=== PATIENT | male | born 1975 | race Caucasian/White ===

== ENCOUNTER → 2019-08-05 | Outpatient (CLI) | payer BC ==
[2019-08-05 09:17] LABS: HCT 43.4 % (39.0-53.0); MCH 31.6 pg (25.0-35.0); MCHC 34.5 g/dL (31.0-37.0); MCV 91.6 fL (80.0-100.0); Mean Platelet Volume 7.3; Platelet Count 238 k/uL (150-450); RBC 4.74 m/uL (4.30-5.90); RDW 12.4 % (11.5-15.5); WBC 8.1 k/uL (3.8-10.6)
[2019-08-05 09:51] LABS: INR 0.9 (<1.2); Prothrombin Time 9.4 sec (9.0-12.0)
[2019-08-05 18:14] LABS: ALT 53 U/L (10-49); AST 31 U/L (14-35); Albumin/Globulin Ratio 2.21 (1.60-3.17); Alkaline Phosphatase 121 U/L (41-126); Bilirubin, Conjugated <0.20 mg/dL (0.20-0.40); Globulin 1.9 g/dL (1.6-3.3); Non-African American GFR(CKD) 107.9 (60.0-200.0); Total Bilirubin 0.2 mg/dL (0.2-1.2); Total Protein 6.1 g/dL (6.2-8.2)
== END | disposition home or self-care (01) ==
LOC: LABWHC1 08:02
PROVIDERS: ATTEND Physician Assistant
DX: B19.20 Unspecified viral hepatitis C without hepatic coma (principal)
CPT/HCPCS: 36415; 80076; 82565; 85027; 85610; 87522

== ENCOUNTER → 2019-08-05 | Outpatient (CLI) | payer BC ==
--- NOTE | 2019-08-05 08:22 | US ---
EXAMINATION TYPE: US liver DATE OF EXAM: 08/05/2019 COMPARISON: NONE CLINICAL HISTORY: 44-year-old male B19.20 Hepatitis C. TECHNIQUE: Multiple sonographic images of the right upper quadrant are obtained. FINDINGS: EXAM MEASUREMENTS: Liver Length: 20.9 cm Gallbladder Wall: 0.1 cm CBD: 1.0 cm Right Kidney: 13.7 x 5.3 x 5.1 cm Pancreas: Pancreatic head and tail obscured by overlying bowel gas. Visualized body shows no gross a bnormality. Liver: Enlarged. Increased attenuation, decreased visualization of vessels suggestive of fatty infil trate. Gallbladder: wnl Evidence for sonographic Angel's sign: neg CBD: Dilated Right Kidney: No hydronephrosis or masses seen. Somewhat large in size. IMPRESSION: 1. Hepatomegaly (20.9 cm) with underlying hepatic steatosis. Correlate with LFTs, lipid profile, and patient risk factors. 2. Bile duct is dilated at 1.0 cm. Correlate with alkaline phosphatase and bilirubin levels to exclud e biliary obstruction. ERCP or MRCP as clinically indicated. 3. Somewhat large size of the right kidney without hydronephrosis. Questionable clinical significance .
== END | disposition home or self-care (01) ==
LOC: RADUSWWP 07:02
PROVIDERS: ATTEND Internal Medicine Gastroenterology
DX: K76.0 Fatty (change of) liver, not elsewhere classified (principal); R16.0 Hepatomegaly, not elsewhere classified; K83.8 Other specified diseases of biliary tract
CPT/HCPCS: 76705

== ENCOUNTER 2019-12-20 07:57 | Emergency (ER) | payer BC ==
[2019-12-20 08:03] VITALS: RESP 18
[2019-12-20] MEDS ORDERED: SODIUM CHLORIDE 0.9% 1,000 ML IV STA ×2 (08:27)
[2019-12-20] MEDS ORDERED: MORPHINE SULFATE 2 MG/ML SYRINGE IVP STA (08:27)
[2019-12-20] MEDS ORDERED: KETOROLAC 30 MG/ML 1 ML VIAL IVP STA (08:27)
[2019-12-20] MEDS ORDERED: PANTOPRAZOLE 40 MG/10 ML VIAL IVP STA (08:27)
--- NOTE | 2019-12-20 08:31 | ED ---
Abdominal Pain HPI - General Chief Complaint: Abdominal Pain Stated Complaint: L side pain Time Seen by Provider: 12/20/19 08:13 Source: patient, RN notes reviewed, old records reviewed Mode of arrival: ambulatory Limitations: no limitations - History of Present Illness Initial Comments: This Patient is a 44-year-old male who presents the emergency department today for evaluation with chief complaint of left-sided abdominal and flank pain underneath his ribs worsening over the past month. He initially thought this was related to constipation. Patient states that he has a history of hepatitis and currently receiving treatment was on his third month of hep C treatment. Patient states that he has had no changes in urination, and reports that he did have a small bowel movement the past few days. He reports that sometimes the pain will cause discomfort with breathing. Patient denies any recent fevers or chills. No vomiting. - Related Data Previous Rx's Medication Instructions Recorded Ondansetron Odt [Zofran Odt] 4 mg PO Q8HR PRN #12 tab 12/20/19 Pantoprazole [Protonix] 40 mg PO DAILY #7 tablet. 12/20/19 Allergies Allergy/AdvReac Type Severity Reaction Status Date / Time No Known Allergies Allergy Verified 12/20/19 08:03 Review of Systems ROS Statement: Those systems with pertinent positive or pertinent negative responses have been documented in the HPI. ROS Other: All systems not noted in ROS Statement are negative. Past Medical History Additional Past Medical History / Comment(s): hepatitis c History of Any Multi-Drug Resistant Organisms: None Reported Past Surgical History: No Surgical Hx Reported Smoking Status: Current every day smoker Past Alcohol Use History: None Reported Past Drug Use History: None Reported General Exam - General Exam Comments Initial Comments: 44 -year-old male. Alert and oriented 3. Patient appears in no acute distress. Limitations: no limitations General appearance: alert, in no apparent distress Head exam: Present: atraumatic, normocephalic, normal inspection Eye exam: Present: normal appearance ENT exam: Present: normal exam, mucous membranes moist Neck exam: Present: normal inspection. Absent: tenderness, meningismus, lymphadenopathy Respiratory exam: Present: normal lung sounds bilaterally Cardiovascular Exam: Present: regular rate, normal rhythm, normal heart sounds. Absent: systolic murmur, diastolic murmur, rubs, gallop, clicks GI/Abdominal exam: Present: soft, normal bowel sounds. Absent: distended, tenderness, guarding, rebound, rigid Extremities exam: Present: normal inspection, full ROM, normal capillary refill. Absent: tenderness, pedal edema, joint swelling, calf tenderness Back exam: Present: normal inspection Neurological exam: Present: alert, oriented X3, CN II-XII intact Psychiatric exam: Present: normal affect, normal mood Skin exam: Present: warm, dry, intact, normal color. Absent: rash Course Vital Signs 12/20/19 07:58 Temperature 97.6 F Pulse Rate 63 Respiratory 18 Rate Blood Pressure 154/92 O2 Sat by Pulse 98 Oximetry Medical Decision Making - Medical Decision Making Patient is a 44-year-old male presents emergency department today for evaluation chief complaint of left-sided abdominal pain and flank pain for the past 2 months. At this time Patient reports he's had no changes in her bloody stools, denies weight loss. He reports that pain sometimes is worse with eating and worse with a breath. At this time he does also state he is now his Protonix for the past few months that he normally would take daily. At this time patient's vital signs are stable. EKG was performed and normal. Blood work was otherwise unremarkable including normal kidney function and normal UA. Reevaluation Patient is resting comfortably in bed. Patient was offered further imaging studies such as computed tomography scan but states he probably forego this today and a chronic pain as the rest of the labs are normal. I did discuss if any worsening signs or symptoms occur persistent pain he could return for further evaluation or following up with his primary care doctor. Patient is a greeable to treatment plan will comply. Return parameters were discussed. - Lab Data Result diagrams: 12/20/19 08:59 12/20/19 08:59 Lab Results 12/20/19 12/20/19 12/20/19 Range/Units 08:59 08:59 08:59 WBC 8.4 (3.8-10.6) k/uL RBC 4.67 (4.30-5.90) m/uL Hgb 14.5 (13.0-17.5) gm/dL Hct 42.6 (39.0-53.0) % MCV 91.3 (80.0-100.0) fL MCH 31.0 (25.0-35.0) pg MCHC 34.0 (31.0-37.0) g/dL RDW 12.3 (11.5-15.5) % Plt Count 224 (150-450) k/uL Neutrophils % 52 % Lymphocytes % 37 % Monocytes % 5 % Eosinophils % 3 % Basophils % 1 % Neutrophils # 4.4 (1.3-7.7) k/uL Lymphocytes # 3.1 (1.0-4.8) k/uL Monocytes # 0.4 (0-1.0) k/uL Eosinophils # 0.3 (0-0.7) k/uL Basophils # 0.1 (0-0.2) k/uL PT 9.5 (9.0-12.0) sec INR 0.9 (<1.2) APTT 23.5 (22.0-30.0) sec Sodium 136 L (137-145) mmol/L Potassium 4.6 (3.5-5.1) mmol/L Chloride 103 (98-107) mmol/L Carbon Dioxide 25 (22-30) mmol/L Anion Gap 8 mmol/L BUN 15 (9-20) mg/dL Creatinine 0.59 L (0.66-1.25) mg/dL Est GFR (CKD-EPI)AfAm >90 (>60 ml/min/1.73 sqM) Est GFR (CKD-EPI)NonAf >90 (>60 ml/min/1.73 sqM) Glucose 119 H (74-99) mg/dL Plasma Lactic Acid Jw (0.7-2.0) mmol/L Calcium 8.9 (8.4-10.2) mg/dL Total Bilirubin 0.2 (0.2-1.3) mg/dL AST 26 (17-59) U/L ALT 29 (4-49) U/L Alkaline Phosphatase 95 (38-126) U/L Troponin I (0.000-0.034) ng/mL Total Protein 6.7 (6.3-8.2) g/dL Albumin 3.9 (3.5-5.0) g/dL Amylase 47 (30-110) U/L Lipase 58 (23-300) U/L Urine Color Urine Appearance (Clear) Urine pH (5.0-8.0) Ur Specific [place] (1.001-1.035) Urine Protein (Negative) Urine Glucose (UA) (Negative) Urine Ketones (Negative) Urine Blood (Negative) Urine Nitrite (Negative) Urine Bilirubin (Negative) Urine Urobilinogen (<2.0) mg/dL Ur Leukocyte Esterase (Negative) 12/20/19 12/20/19 12/20/19 Range/Units 08:59 08:59 09:20 WBC (3.8-10.6) k/uL RBC (4.30-5.90) m/uL Hgb (13.0-17.5) gm/dL Hct (39.0-53.0) % MCV (80.0-100.0) fL MCH (25.0-35.0) pg MCHC (31.0-37.0) g/dL RDW (11.5-15.5) % Plt Count (150-450) k/uL Neutrophils % % Lymphocytes % % Monocytes % % Eosinophils % % Basophils % % Neutrophils # (1.3-7.7) k/uL Lymphocytes # (1.0-4.8) k/uL Monocytes # (0-1.0) k/uL Eosinophils # (0-0.7) k/uL Basophils # (0-0.2) k/uL PT (9.0-12.0) sec INR (<1.2) APTT (22.0-30.0) sec Sodium (137-145) mmol/L Potassium (3.5-5.1) mmol/L Chloride (98-107) mmol/L Carbon Dioxide (22-30) mmol/L Anion Gap mmol/L BUN (9-20) mg/dL Creatinine (0.66-1.25) mg/dL Est GFR (CKD-EPI)AfAm (>60 ml/min/1.73 sqM) Est GFR (CKD-EPI)NonAf (>60 ml/min/1.73 sqM) Glucose (74-99) mg/dL Plasma Lactic Acid Jw 1.4 (0.7-2.0) mmol/L Calcium (8.4-10.2) mg/dL Total Bilirubin (0.2-1.3) mg/dL AST (17-59) U/L ALT (4-49) U/L Alkaline Phosphatase (38-126) U/L Troponin I <0.012 (0.000-0.034) ng/mL Total Protein (6.3-8.2) g/dL Albumin (3.5-5.0) g/dL Amylase (30-110) U/L Lipase (23-300) U/L Urine Color Light Yellow Urine Appearance Clear (Clear) Urine pH 5.0 (5.0-8.0) Ur Specific [place] 1.010 (1.001-1.035) Urine Protein Negative (Negative) Urine Glucose (UA) Negative (Negative) Urine Ketones Negative (Negative) Urine Blood Negative (Negative) Urine Nitrite Negative (Negative) Urine Bilirubin Negative (Negative) Urine Urobilinogen <2.0 (<2.0) mg/dL Ur Leukocyte Esterase Negative (Negative) 12/20/19 09:19 EKG shows normal sinus rhythm normal EKG. Ventricular rate of 63 bpm. Was 176 most seconds. Care laceration 1 and 2 ms. QT QTc is 412/421 ms. - Radiology Data Radiology results: report reviewed Disposition Clinical Impression: Left sided abdominal pain, Flank pain, chronic Disposition: HOME SELF-CARE Condition: Good Instructions (If sedation given, give patient instructions): Abdominal Pain (ED) Additional Instructions: Patient is to rest, increase her fluid intake and recommended using that and has a medicine as prescribed. Return to ED if any alarming signs or symptoms occur and recommended prompt follow-up with primary care doctor. Prescriptions: Pantoprazole [Protonix] 40 mg PO DAILY #7 tablet. Ondansetron Odt [Zofran Odt] 4 mg PO Q8HR PRN #12 tab PRN Reason: Nausea Is patient prescribed a controlled substance at d/c from ED?: No Referrals: Dominguez Rascon MD [Primary Care Provider] - 1-2 days Time of Disposition: 10:35
[2019-12-20 09:20] LABS: Basophils # (A) 0.1 k/uL (0-0.2); Basophils % (A) 1 %; Eosinophils # (A) 0.3 k/uL (0-0.7); Eosinophils % (A) 3 %; HCT 42.6 % (39.0-53.0); HGB 14.5 gm/dL (13.0-17.5); Lymphocytes # (A) 3.1 k/uL (1.0-4.8); Lymphocytes % (A) 37 %; MCV 91.3 fL (80.0-100.0); Mean Platelet Volume 7.2; Monocytes # (A) 0.4 k/uL (0-1.0); Monocytes % (A) 5 %; Neutrophils # (A) 4.4 k/uL (1.3-7.7); Neutrophils % (A) 52 %; Platelet Count 224 k/uL (150-450); RBC 4.67 m/uL (4.30-5.90); RDW 12.3 % (11.5-15.5); WBC 8.4 k/uL (3.8-10.6)
[2019-12-20 09:25] LABS: ALT 29 U/L (4-49); AST 26 U/L (17-59); African American GFR (CKD) >90 (>60 ml/min/1.73 sqM); Albumin 3.9 g/dL (3.5-5.0); Alkaline Phosphatase 95 U/L (38-126); Amylase 47 U/L (30-110); Anion Gap 8 mmol/L; Blood Urea Nitrogen 15 mg/dL (9-20); Calcium 8.9 mg/dL (8.4-10.2); Carbon Dioxide 25 mmol/L (22-30); Chloride 103 mmol/L (98-107); Glucose 119 mg/dL (74-99); Non-African American GFR(CKD) >90 (>60 ml/min/1.73 sqM); Potassium 4.6 mmol/L (3.5-5.1); Sodium 136 mmol/L (137-145); Total Bilirubin 0.2 mg/dL (0.2-1.3); Total Protein 6.7 g/dL (6.3-8.2)
[2019-12-20 09:28] LABS: INR 0.9 (<1.2); Partial Thromboplastin Time 23.5 sec (22.0-30.0); Prothrombin Time 9.5 sec (9.0-12.0)
[2019-12-20 09:32] LABS: Appearance,Urine Clear (Clear); Bilirubin,Urine Negative (Negative); Blood,Urine Negative (Negative); Color,Urine Light Yellow; Glucose,Urine (UA) Negative (Negative); Ketones,Urine Negative (Negative); Leukocyte Esterase,Urine Negative (Negative); Nitrite,Urine Negative (Negative); Protein,Urine Negative (Negative); Urobilinogen,Urine <2.0 mg/dL (<2.0)
--- NOTE | 2019-12-20 09:42 | XR ---
EXAMINATION TYPE: XR KUB DATE OF EXAM: 12/20/2019 COMPARISON: None INDICATION: Abdomen pain left mid quadrant TECHNIQUE: Single view abdomen upright view FINDINGS: There is a normal bowel gas pattern. No free air is evident. No suspicious differential air-fluid lev els are evident. Psoas margins are normal. No organomegaly is present. No suspicious calcifications are evident. IMPRESSION: 1. Unremarkable Abdomen
--- NOTE | 2019-12-20 09:42 | XR ---
EXAMINATION TYPE: XR chest 2V DATE OF EXAM: 12/20/2019 COMPARISON: 07/26/2013 INDICATION: Left chest pain TECHNIQUE: Frontal and lateral views of the chest are obtained. FINDINGS: The heart size is normal. The pulmonary vasculature is normal. The lungs are clear. IMPRESSION: 1. No acute pulmonary process.
[2019-12-20 11:07] VITALS: BP 133/97; PULSE 66; TEMP 97.8
== END 2019-12-20 10:56 | disposition home or self-care (01) ==
LOC: EC 07:57
DX: R10.9 Unspecified abdominal pain (principal); G89.29 Other chronic pain; F17.200 Nicotine dependence, unspecified, uncomplicated
CPT/HCPCS: 36415; 93005; 80053; 82150; 83605; 83690; 84484; 85025; 85610; 85730; 81003; 71046; 74018; 99285; 96374; 96375 ×2; 96361 ×2; J1885; J2270; C9113